=== PATIENT | female | born 1985 | race Caucasian/White ===

== ENCOUNTER 2018-03-05 18:53 | Inpatient (IN) | payer BC, OTHER ==
--- NOTE | 2018-03-05 19:58 | HP ---
General Information - Reason for Visit preeclampsia. pt with elevated bp in office . proteinuria is 460 - General Information Maternal Age: 32 Grav: 1 Para: 0 SAB: 0 IEA: 0 Estimated Due Date: 03/11/18 Determined By: LMP Maternal Blood Type and Rh: O Positive - Results this Serology/RPR Result: Non-Reactive Rubella Result: Immune HBsAg Result: Negative HIV Result: Negative GBS Culture Result: Positive Past Medical History Pertinent Past Medical History: See Records Pertinent Past Surgical History: None Pertinent Family History: Non-Contributory - Antepartal Records Antepartal Records: Reviewed, Complicated by: - pih now preeclampsia Review of Systems Constitutional: Comfortable Gastrointestinal: No Nausea/Vomiting Genitourinary: No Bleeding, No Leaking Fluid Musculoskeletal: No Epigastric Pain Neurological: No Headache Movement: Normal Exam - Exam Breast: Breast Exam Deferred Extremities: Edema - 1+ Heart: Normal Rhythm/Heart Sounds HEENT: No Significant Findings Lungs: Clear Bilaterally Reflexes: DTR 2+ Targeted Exam Findings Cervical Exam: 1cm Effacement: 70% Station: -2, -1 Presenting Part: Vertex Membrane Status: Intact EFM Findings - External Monitor Findings Baseline Heart Rate: 135 External Monitor Findings: Accelerations Present, Variability Moderate Contractions: Irregular, Mild Assessment/Plan - Assessment p[reeeclampsia 39 weeks tomorrow/ no severe features - Plan Plan: Induction, Cervical Ripening - ballon placed 30 cc saline in cervix - Date/Time of Admission Date of Admission: 03/05/18 Time of Admission: 20:00
[2018-03-05 20:35] LABS: ABS Basophils 0.1 10^3/ul (0-0.2); ABS Eosinophils 0 10^3/ul (0-0.6); ABS Monocytes 0.8 10^3/ul (0-0.8); ABS Neutrophils 6.4 10^3/ul (1.5-7.7); ABS Nucleated RBC 0 10^3/ul; Eosinophil % 0.4 % (0-6); Hematocrit 38 % (35-47); Hemoglobin 12.8 g/dl (12.0-16.0); Lymphocyte % 21.7 % (25-47); Mean Corpuscular HGB Conc 34 g/dl (31-36); Mean Corpuscular Hemoglobin 29 pg (27-31); Mean Corpuscular Volume 86 fL (80-97); Mean Platelet Volume 10.7 fL (7.4-10.4); Nucleated Red Blood Cells % 0.1; Platelet Count 213 10^3/ul (150-450); Red Blood Count 4.41 10^6/ul (4.00-5.40); Red Cell Distribution Width 14 % (10.5-15); White Blood Count 9.3 10^3/ul (3.5-10.8)
[2018-03-05 20:51] LABS: EGFR Non-African American 93.6 (>60); Uric Acid 4.9 mg/dL (2.3-6.6)
[2018-03-05] MEDS ORDERED: Labetalol IV* 5 MG/ML 20 ML VIAL IV PUSH ONE ×2 (21:15→22:09)
[2018-03-05] MEDS ORDERED: Labetalol IV* 5 MG/ML 20 ML VIAL ONE (21:27)
[2018-03-06] MEDS ORDERED: Oxytocin in LR* 20 UNITS/1,000 ML BAG IVPB SCH ×2 (08:00→21:00)
[2018-03-06] MEDS ORDERED: Penicillin G Potassium IV* 5,000,000 UNITS in NS 0.9% 100 ML* 100 ML IVPB ONE (08:03)
[2018-03-06 08:20] LABS: ABS Basophils 0 10^3/ul (0-0.2); ABS Eosinophils 0 10^3/ul (0-0.6); ABS Lymphocytes 2.4 10^3/ul (1.0-4.8); ABS Monocytes 0.8 10^3/ul (0-0.8); ABS Nucleated RBC 0 10^3/ul; Eosinophil % 0.2 % (0-6); Hematocrit 38 % (35-47); Hemoglobin 12.6 g/dl (12.0-16.0); Lymphocyte % 19.3 % (25-47); Mean Corpuscular HGB Conc 33 g/dl (31-36); Mean Corpuscular Hemoglobin 29 pg (27-31); Mean Corpuscular Volume 87 fL (80-97); Mean Platelet Volume 10.8 fL (7.4-10.4); Nucleated Red Blood Cells % 0; Platelet Count 213 10^3/ul (150-450); Red Blood Count 4.41 10^6/ul (4.00-5.40); Red Cell Distribution Width 14 % (10.5-15); White Blood Count 12.3 10^3/ul (3.5-10.8)
[2018-03-06] MEDS ORDERED: OBEPIDURAL* 250 ML EPIDURAL ONE (10:21)
[2018-03-06] MEDS ORDERED: Sodium Citrate/Citric Acid* 15 ML UDC PO PRN (10:57)
[2018-03-06] MEDS ORDERED: Phenylephrine IV* 40 MCG/ML 10 ML SYRINGE IV PUSH PRN ×2 (10:57)
[2018-03-06] MEDS ORDERED: Famotidine TAB* 20 MG PO PRN (10:57)
[2018-03-06] MEDS ORDERED: OBEPIDURAL* 250 ML EPIDURAL SCH (11:00)
[2018-03-06] MEDS: Penicillin G Potassium IV* 2,500,000 UNITS in NS 0.9% 100 ML* 100 ML IVPB SCH ×3 (12:27→20:22)
[2018-03-06] MEDS ORDERED: Acetaminophen TAB* 325 MG PO ONE (12:38)
[2018-03-06] MEDS: Labetalol IV* 5 MG/ML 20 ML VIAL IV PUSH ONE ×2 (16:05→17:03)
[2018-03-06] MEDS ORDERED: Labetalol IV* 5 MG/ML 20 ML VIAL IV PUSH ONE (17:16)
[2018-03-06] MEDS ORDERED: Misoprostol TAB* 200 MCG PR ONE (20:58)
[2018-03-06] MEDS ORDERED: Dibucaine 1% 28.35 GM TUBE PR PRN (20:58)
[2018-03-06] MEDS ORDERED: Witch Hazel PAD* JAR TOPICAL PRN (20:58)
[2018-03-06] MEDS ORDERED: Acetaminophen TAB* 325 MG PO PRN (20:58)
[2018-03-06] MEDS ORDERED: Glycerin ADULT SUPP PR PRN (20:58)
[2018-03-06] MEDS ORDERED: Simethicone TAB* 80 MG TAB.CHEW PO SCH (21:00)
--- NOTE | 2018-03-06 21:06 | PROCNOTE ---
[facility] OB: Delivery Note - Delivery A Date of : 03/06/18 Time of : 20:39 Sex: Female Score 1 Minute: 9 Score 5 Minutes: 9 Gestational Age in Weeks and Days at Delivery: 39 Weeks and 2 Days Delivery Method: Spontaneous Vaginal Labor: Induced Did Patient attempt ?: N/A, No Previous Amniotic Fluid: Clear Estimated Blood Loss: 600 Anesthesia/Analgesia: CEI for Labor Delivered By: Milagros Collins - Nursery Level of Nursery: Regular/Bedside - Perineum Perineal Injury: Abrasion Only - Not Repaired, 2nd Degree - vaginal laceration / abrasion labia minora bilateral Perineal Repair: By Delivering Practioner - Events Delivery Events of Note: Pitocin During Labor, Supplemental O2 to Mother, Post- Bleeding - Meds Given - cytotec 800 mcg per rectum, IUPC Use Delivery Events of Note Comment: Preeclampsia - Additional Delivery Notes Additional Delivery Notes: Pt with preeclmpsia required several doses of labetalol IV/ will convert to oral labetalol 200 mg po BID
[2018-03-06] MEDS: Docusate CAP* 100 MG PO SCH (23:16)
[2018-03-06] MEDS: Labetalol TAB* 200 MG PO SCH (23:16)
[2018-03-07 06:11] LABS: ABS Basophils 0 10^3/ul (0-0.2); ABS Eosinophils 0 10^3/ul (0-0.6); ABS Lymphocytes 1.4 10^3/ul (1.0-4.8); ABS Monocytes 1.1 10^3/ul (0-0.8); ABS Neutrophils 14.8 10^3/ul (1.5-7.7); ABS Nucleated RBC 0 10^3/ul; Eosinophil % 0 % (0-6); Hematocrit 29 % (35-47); Hemoglobin 9.8 g/dl (12.0-16.0); Lymphocyte % 7.8 % (25-47); Mean Corpuscular HGB Conc 34 g/dl (31-36); Mean Corpuscular Hemoglobin 29 pg (27-31); Mean Corpuscular Volume 86 fL (80-97); Mean Platelet Volume 10.4 fL (7.4-10.4); Nucleated Red Blood Cells % 0; Platelet Count 179 10^3/ul (150-450); Red Blood Count 3.35 10^6/ul (4.00-5.40); Red Cell Distribution Width 14 % (10.5-15); White Blood Count 17.3 10^3/ul (3.5-10.8)
[2018-03-07] MEDS: Docusate CAP* 100 MG PO SCH ×3 (09:03→21:08)
[2018-03-07] MEDS: Ferrous Gluconate TAB* 324 MG TAB PO SCH ×2 (09:03→21:08)
[2018-03-07] MEDS: Ibuprofen TAB* 600 MG PO PRN ×3 (09:21→21:08)
[2018-03-07] MEDS: Labetalol TAB* 200 MG PO SCH ×2 (10:07→21:08)
[2018-03-08 07:42] VITALS: BP 127/74
[2018-03-08] MEDS: Ibuprofen TAB* 600 MG PO PRN ×2 (07:44→16:01)
[2018-03-08] MEDS: Labetalol TAB* 200 MG PO SCH (09:08)
[2018-03-08] MEDS: Ferrous Gluconate TAB* 324 MG TAB PO SCH (09:08)
[2018-03-08] MEDS: Docusate CAP* 100 MG PO SCH ×2 (09:08→15:58)
--- NOTE | 2018-03-08 10:29 | PTEDU ---
Patient Name: TELMA COOL TELMA COOL selected video: Never Ever Shake a Baby to view on 03/08/2018 at 10:28:22 AM from [id number]
== END 2018-03-08 17:05 | disposition home or self-care (01) | DRG 560 ==
LOC: MCHOBOUT 18:53 → MCHOB 20:32
PROVIDERS: ADMIT Obstetrics & Gynecology; ATTEND Obstetrics & Gynecology
PROC: 10E0XZZ Delivery of Products of Conception, External Approach (ICD-10-PCS; principal; 2018-03-06)
PROC: 3E033VJ Introduction of Other Hormone into Peripheral Vein, Percutaneous Approach (ICD-10-PCS; 2018-03-06)
PROC: 10907ZC Drainage of Amniotic Fluid, Therapeutic from Products of Conception, Via Natural or Artificial Opening (ICD-10-PCS; 2018-03-06)
PROC: 0HQ9XZZ Repair Perineum Skin, External Approach (ICD-10-PCS; 2018-03-06)
DX: O14.14 Severe pre-eclampsia complicating childbirth (principal); Z37.0 Single live birth; O69.81X0 Labor and delivery complicated by cord around neck, without compression, not applicable or unspecified; O70.0 First degree perineal laceration during delivery; O99.824 Streptococcus B carrier state complicating childbirth; O72.1 Other immediate postpartum hemorrhage; O90.81 Anemia of the puerperium; D64.9 Anemia, unspecified; Z3A.39 39 weeks gestation of pregnancy
CPT/HCPCS: 36415; 80053; 84550; 85025; 86850; 86900; 86901; A9270-GY; J2540

== ENCOUNTER 2021-12-16 10:14 | Inpatient (IN) ==
[2021-12-16] MEDS ORDERED: miSOPROStol 100 mcg TAB VAGINAL ONE (10:42)
[2021-12-16] MEDS ORDERED: Buffered Lidocaine 1% SYRIN 1 ml INTRADERM ONE (10:42)
[2021-12-16] MEDS ORDERED: Lactated Ringers 1000 ml BAG 1,000 ML IV ONE ×2 (10:42→23:55)
[2021-12-16] MEDS ORDERED: Lactated Ringers 1000 ml BAG 1,000 ML IV SCH ×3 (11:00→23:45)
[2021-12-16 11:49] LABS: Urine Benzodiazepine Screen None Detected (None Detect); Urine Cannabinoids Screen None Detected (None Detect); Urine Opiates Screen None Detected (None Detect)
[2021-12-16 12:52] LABS: Urine Appearance Clear; Urine Bilirubin Negative (Negative); Urine Blood Negative (Negative); Urine Color Yellow; Urine Glucose Negative (Negative); Urine Ketones Negative (Negative); Urine Nitrite Negative (Negative); Urine Protein Negative (Negative); Urine Specific Gravity 1.015 (1.005-1.030); Urine Urobilinogen 0.2 (Negative) (Negative)
[2021-12-16] MEDS ORDERED: Oxytocin in LR 20,000 MILLI.UNIT/1,000 ML BAG IV SCH (15:30)
[2021-12-16 15:55] LABS: ABS Eosinophils 0.1 10^3/ul (0-0.6); ABS Lymphocytes 1.7 10^3/ul (1.0-4.8); ABS Monocytes 0.7 10^3/ul (0-0.8); ABS Neutrophils 7.4 10^3/ul (1.5-7.7); Eosinophil % 0.7 %; Hematocrit 42 % (35-47); Lymphocyte % 16.9 %; Mean Corpuscular HGB Conc 34 g/dL (31-36); Mean Corpuscular Hemoglobin 31 pg (27-31); Mean Corpuscular Volume 91 fL (80-97); Mean Platelet Volume 9.2 fL (7.4-10.4); Platelet Count 260 10^3/uL (150-450); Red Blood Count 4.56 10^6 /uL (3.70-4.87); Red Cell Distribution Width 14 % (10-15); White Blood Count 9.9 10^3/uL (3.5-10.8)
[2021-12-16 16:18] LABS: Albumin 3.4 g/dL (3.2-5.2); Albumin/Globulin Ratio 1.3 (1-3); Calcium 9.1 mg/dL (8.6-10.3); Globulin 2.7 g/dL (2-4); Total Bilirubin 0.3 mg/dL (0.2-1.0); Total Protein 6.1 g/dL (6.4-8.9); Uric Acid 3.6 mg/dL (2.3-6.6); eGFR CKD-EPI 118.4 (>60)
[2021-12-16] MEDS ORDERED: OBEPIDURAL (200 ML) 200 ML EPIDURAL ONE (23:14)
[2021-12-16] MEDS ORDERED: Lidocaine 2% w/ EPI 1:200,000 MPF 20 ML SDV VIAL ONE (23:15)
[2021-12-16] MEDS ORDERED: OBEPIDURAL (200 ML) 200 ML EPIDURAL SCH (23:45)
[2021-12-16] MEDS ORDERED: Sodium Citrate/Citric Acid LIQ 15 ML UDC PO PRN (23:55)
[2021-12-16] MEDS ORDERED: Lactated Ringers 1000 ml BAG 500 ML IV PRN (23:55)
[2021-12-16] MEDS ORDERED: Phenylephrine 40 mcg/mL 10mL (400mcg) SYRINGE IV PUSH PRN ×2 (23:55)
[2021-12-17] MEDS ORDERED: Glycerin ADULT 2.4 gm SUPP PR PRN (07:27)
[2021-12-17] MEDS ORDERED: Witch Hazel PAD JAR TOPICAL PRN (07:27)
[2021-12-17] MEDS ORDERED: Dibucaine 1% OINT 28.35 GM TUBE PR PRN (07:27)
[2021-12-17] MEDS ORDERED: Oxytocin in LR 20,000 MILLI.UNIT/1,000 ML BAG IV SCH (07:30)
[2021-12-17] MEDS ORDERED: Lactated Ringers 1000 ml BAG 1,000 ML IV SCH (08:00)
[2021-12-18 04:46] VITALS: BP 134/76
[2021-12-18 07:00] LABS: ABS Basophils 0.1 10^3/ul (0-0.2); ABS Eosinophils 0.2 10^3/ul (0-0.6); ABS Lymphocytes 2.9 10^3/ul (1.0-4.8); ABS Monocytes 1.2 10^3/ul (0-0.8); Eosinophil % 1.4 %; Hematocrit 34 % (35-47); Hemoglobin 11.9 g/dL (12.0-16.0); Lymphocyte % 21.8 %; Mean Corpuscular HGB Conc 35 g/dL (31-36); Mean Corpuscular Hemoglobin 31 pg (27-31); Mean Corpuscular Volume 90 fL (80-97); Mean Platelet Volume 9.2 fL (7.4-10.4); Platelet Count 220 10^3/uL (150-450); Red Blood Count 3.78 10^6 /uL (3.70-4.87); Red Cell Distribution Width 14 % (10-15); White Blood Count 13.3 10^3/uL (3.5-10.8)
== END 2021-12-18 14:34 | disposition home or self-care (01) | DRG 560 ==
LOC: MCHOBOUT 10:14 → MCHOB 10:44
PROVIDERS: ADMIT Midwife; ATTEND Midwife